=== PATIENT | female | born 1960 | race Caucasian/White ===

== ENCOUNTER → 2019-09-21 | Outpatient (REF) | LOC: M LAB LCGH 11:02 | PROVIDERS: ATTEND Surgery | DX: K80.18 Calculus of gallbladder with other cholecystitis without obstruction (principal) ==

== ENCOUNTER → 2019-11-04 | Outpatient (REF) | payer OTHER ==
[2019-11-04 17:38] LABS: APPEARANCE, URINE CLOUDY (CLEAR); BACTERIA, URINE AUTO 2+ (NEGATIVE); BILIRUBIN, URINE AUTO NEGATIVE (NEGATIVE); BLOOD, URINE BLOOD 2+ (NEGATIVE); COLOR, URINE AMBER (YELLOW); GLUCOSE, URINE (UA) AUTO NEGATIVE (NEGATIVE); KETONE, URINE AUTO NEGATIVE (NEGATIVE); LEUKOCYTE ESTERASE, URINE AUTO 3+ (NEGATIVE); MUCUS, URINE SMALL (NEGATIVE); NITRITE, URINE AUTO POSITIVE (NEGATIVE); PROTEIN, URINE AUTO NEGATIVE (NEGATIVE); RBC, URINE AUTO 16 /HPF (0-3); SPECIFIC GRAVITY URINE AUTO 1.018 (1.002-1.035); SQUAMOUS EPITHELIAL CELL UR AU 1 /HPF (0-6); WBC, URINE AUTO TNTC /HPF (0-3)
== END ==
LOC: M LAB REF 10:56
PROVIDERS: ATTEND Physician Assistant
DX: N39.0 Urinary tract infection, site not specified (principal)

== ENCOUNTER 2021-06-28 02:36 | Emergency (ER) | payer OTHER ==
[~2021-06-28] VITALS: Ht 157.5 cm; Wt 64.1 kg
[2021-06-28 02:37] VITALS: BP 174/78
--- OUTSIDE RECORDS SUMMARY | 2021-06-28 02:45 | CCD ---
Author Author [facility] Organization [facility] Address Unknown Phone Unavailable Care Team Providers Care Critical Care Nurse Practitioner Name Role Phone Mary Humphreys MD Unavailable Unavailable Mary Humphreys MD Unavailable Unavailable Mary Humphreys MD Unavailable Unavailable Mary Humphreys MD Unavailable Unavailable Mary Humphreys MD Unavailable Unavailable Mary Humphreys MD Unavailable Unavailable Mary Humphreys MD Unavailable Unavailable Mary Humphreys MD Unavailable Unavailable Mary Humphreys MD Unavailable Unavailable Mary Humphreys MD Unavailable Unavailable Mary Humphreys MD Unavailable Unavailable Mary Humphreys MD Unavailable Unavailable Mary Humphreys MD Unavailable Unavailable Mary Humphreys MD Unavailable Unavailable Mary Humphreys MD Unavailable Unavailable Mary Humphreys MD Unavailable Unavailable Mary Humphreys MD Unavailable Unavailable Mary Humphreys MD Unavailable Unavailable Mary Humphreys MD Unavailable Unavailable Mary Humphreys MD Unavailable Unavailable Mary Humphreys MD Unavailable Unavailable Mary Humphreys MD Unavailable Unavailable Mary Humphreys MD Unavailable Unavailable Mary Humphreys MD Unavailable Unavailable Mary Humphreys MD Unavailable Unavailable Mary Humphreys MD Unavailable Unavailable Mary Humphreys MD Unavailable Unavailable Mary Humphreys MD Unavailable Unavailable Mary Humphreys MD Unavailable Unavailable Mary Humphreys MD Unavailable Unavailable Mary Humphreys MD Unavailable Unavailable Mary Humphreys MD Unavailable Unavailable Mary Humphreys MD Unavailable Unavailable aMry Humphreys MD Unavailable Unavailable Mary Humphreys MD Unavailable Unavailable Mary Humphreys MD Unavailable Unavailable Mary Humphreys MD Unavailable Unavailable Mary Humphreys MD Unavailable Unavailable Mary Humphreys MD Unavailable Unavailable Mary Humphreys MD Unavailable Unavailable Mary Humphreys MD Unavailable Unavailable Mary Humphreys MD Unavailable Unavailable Mary Humphreys MD Unavailable Unavailable Mary Humphreys MD Unavailable Unavailable Mary Humphreys MD Unavailable Unavailable Mary Humphreys MD Unavailable Unavailable Mary Humphreys MD Unavailable Unavailable Mary Humphreys MD Unavailable Unavailable Mary Humphreys MD Unavailable Unavailable Mary Humphreys MD Unavailable Unavailable Mary Humphreys MD Unavailable Unavailable Mary Humphreys MD Unavailable Unavailable Mary Humphreys MD Unavailable Unavailable Mary Humphreys MD Unavailable Unavailable Mary Humphreys MD Unavailable Unavailable Mary Humphreys MD Unavailable Unavailable Mary Humphreys MD Unavailable Unavailable Mary Humphreys MD Unavailable Unavailable Mary Humphreys MD Unavailable Unavailable Mary Humphreys MD Unavailable Unavailable Mary Humphreys MD Unavailable Unavailable Mary Humphreys MD Unavailable Unavailable Mary Humphreys MD Unavailable Unavailable Mary Humphreys MD Unavailable Unavailable Mary Humphreys MD Unavailable Unavailable Mary Humphreys MD Unavailable Unavailable Mary Humphreys MD Unavailable Unavailable Mary Humphreys MD Unavailable Unavailable Mary Humphreys MD Unavailable Unavailable Mary Humphreys MD Unavailable Unavailable Mary Humphreys MD Unavailable Unavailable Mary Humphreys MD Unavailable Unavailable Mary Humphreys MD Unavailable Unavailable Mary Humprheys MD Unavailable Unavailable Mary Humphreys MD Unavailable Unavailable Mary Humphreys MD Unavailable Unavailable Mary Humphreys MD Unavailable Unavailable Mary Humphreys MD Unavailable Unavailable Mary Humphreys MD Unavailable Unavailable Mary Humphreys MD Unavailable Unavailable Mary Humphreys MD Unavailable Unavailable Mary Humphreys MD Unavailable Unavailable Mary Humphreys MD Unavailable Unavailable Mary Humphreys MD Unavailable Unavailable Mary Humphreys MD Unavailable Unavailable Mary Humphreys MD Unavailable Unavailable Mary Humphreys MD Unavailable Unavailable Mary Humphreys MD Unavailable Unavailable Mary Humphreys MD Unavailable Unavailable Mary Humphreys MD Unavailable Unavailable Mary Humphreys MD Unavailable Unavailable Mary Humphreys MD Unavailable Unavailable Mary Humphreys MD Unavailable Unavailable KRISTA, L MALLORY PA Unavailable Unavailable KRISTA, L MALLORY PA Unavailable Unavailable KRISTA, L MALLORY PA Unavailable Unavailable KRISTA, L MALLORY PA Unavailable Unavailable KRISTA, L MALLORY PA Unavailable Unavailable KRISTA, L MALLORY PA Unavailable Unavailable KRISTA, L MALLORY PA Unavailable Unavailable KRISTA, L MALLORY PA Unavailable Unavailable KRISTA, L MALLORY PA Unavailable Unavailable KRISTA, L MALLORY PA Unavailable Unavailable KRISTA, L MALLROY PA Unavailable Unavailable KRISTA, L MALLORY PA Unavailable Unavailable KRISTA, L MALLORY PA Unavailable Unavailable KRISTA, L MALLORY PA Unavailable Unavailable KRISTA, Raffy TEJADA PA Unavailable Unavailable KRISTA, L MALLORY PA Unavailable Unavailable KRISTA, L MALLORY PA Unavailable Unavailable KRISTA, Raffy TEJADA PA Unavailable Unavailable KRISTA, L MALLORY PA Unavailable Unavailable KRISTA, L MALLORY PA Unavailable Unavailable KRISTA, Raffy TEJADA PA Unavailable Unavailable KRISTA, L MALLORY PA Unavailable Unavailable Miky, R Aleisha VOICE INTERCEPT TECHNICIAN Unavailable Unavailable Miky, R Aleisha VOICE INTERCEPT TECHNICIAN Unavailable Unavailable Miky, R Aleisha VOICE INTERCEPT TECHNICIAN Unavailable Unavailable Miky, R Aleisha VOICE INTERCEPT TECHNICIAN Unavailable Unavailable Miky, R Aleisha VOICE INTERCEPT TECHNICIAN Unavailable Unavailable Miky, R Aleisha VOICE INTERCEPT TECHNICIAN Unavailable Unavailable Miky, R Aleisha VOICE INTERCEPT TECHNICIAN Unavailable Unavailable Miky, R Aleisha VOICE INTERCEPT TECHNICIAN Unavailable Unavailable Miky, R Aleisha VOICE INTERCEPT TECHNICIAN Unavailable Unavailable Miky, R Aleisha VOICE INTERCEPT TECHNICIAN Unavailable Unavailable Miky, R Aleisha VOICE INTERCEPT TECHNICIAN Unavailable Unavailable Miky, R Aleisha VOICE INTERCEPT TECHNICIAN Unavailable Unavailable Miky, R Aleisha VOICE INTERCEPT TECHNICIAN Unavailable Unavailable Miky, R Aleisha VOICE INTERCEPT TECHNICIAN Unavailable Unavailable Miky, R Aleisha VOICE INTERCEPT TECHNICIAN Unavailable Unavailable Miky, R Aleisha VOICE INTERCEPT TECHNICIAN Unavailable Unavailable Miky, R Aleisha VOICE INTERCEPT TECHNICIAN Unavailable Unavailable Miky, R Aleisha VOICE INTERCEPT TECHNICIAN Unavailable Unavailable Miky, R Aleisha VOICE INTERCEPT TECHNICIAN Unavailable Unavailable Miky, R Aleisha VOICE INTERCEPT TECHNICIAN Unavailable Unavailable Miky, R Aleisha VOICE INTERCEPT TECHNICIAN Unavailable Unavailable Miky, R Aleisha VOICE INTERCEPT TECHNICIAN Unavailable Unavailable Miky, R Aleisha VOICE INTERCEPT TECHNICIAN Unavailable Unavailable Miky, R Aleisha VOICE INTERCEPT TECHNICIAN Unavailable Unavailable Miky, R Aleisha VOICE INTERCEPT TECHNICIAN Unavailable Unavailable Miky, R Aleisha VOICE INTERCEPT TECHNICIAN Unavailable Unavailable Miky, R Aleisha VOICE INTERCEPT TECHNICIAN Unavailable Unavailable Miky, R Aleisha VOICE INTERCEPT TECHNICIAN Unavailable Unavailable Miky, R Aleisha VOICE INTERCEPT TECHNICIAN Unavailable Unavailable Miky, R Aleisha VOICE INTERCEPT TECHNICIAN Unavailable Unavailable Miky, R Aleisha VOICE INTERCEPT TECHNICIAN Unavailable Unavailable Miky, R Aleisha VOICE INTERCEPT TECHNICIAN Unavailable Unavailable Miky, R Aleisha VOICE INTERCEPT TECHNICIAN Unavailable Unavailable Miky, R Aleisha VOICE INTERCEPT TECHNICIAN Unavailable Unavailable Miky, R Aleisha VOICE INTERCEPT TECHNICIAN Unavailable Unavailable Miky, R Aleisha VOICE INTERCEPT TECHNICIAN Unavailable Unavailable Miky, R Aleisha VOICE INTERCEPT TECHNICIAN Unavailable Unavailable Miky, R Aleisha VOICE INTERCEPT TECHNICIAN Unavailable Unavailable Miky, R Aleisha VOICE INTERCEPT TECHNICIAN Unavailable Unavailable Miky, R Aleisha VOICE INTERCEPT TECHNICIAN Unavailable Unavailable Re-disclosure Warning The records that you are about to access may contain information from federally-assisted alcohol or drug abuse programs. If such information is present, then the following federally mandated warning applies: This information has been disclosed to you from records protected by federal confidentiality rules (42 CFR part 2). The federal rules prohibit you from making any further disclosure of this information unless further disclosure is expressly permitted by the written consent of the person to whom it pertains or as otherwise permitted by 42 CFR part 2. A general authorization for the release of medical or other information is NOT sufficient for this purpose. The Federal rules restrict any use of the information to criminally investigate or prosecute any alcohol or drug abuse patient.The records that you are about to access may contain highly sensitive health information, the redisclosure of which is protected by Article 27-F of the [facility] Public Health law. If you continue you may have access to information: Regarding HIV / AIDS; Provided by facilities licensed or operated by the [facility] Office of Mental Health; or Provided by the [facility] Office for People With Developmental Disabilities. If such information is present, then the following [facility] mandated warning applies: This information has been disclosed to you from confidential records which are protected by state law. State law prohibits you from making any further disclosure of this information without the specific written consent of the person to whom it pertains, or as otherwise permitted by law. Any unauthorized further disclosure in violation of state law may result in a fine or mcfp sentence or both. A general authorization for the release of medical or other information is NOT sufficient authorization for further disc losure. Allergies and Adverse Reactions Type Description Substance Reaction Status Data Source(s ) Allergy to substance Allergy to substance Allergy to substance DAVIDSON ([facility]) Encounters Encounter Providers Location Date Indications Data Source(s ) Vincent Humphreys MD: [address] [place] [address] [phone], Ph. Attender: Vincent Humphreys MD [facility] Medical 01/20/2021 12:00:00 AM EDT ISAEL ([facility]) Outpatient Attender: MALLORY VELASCO PAConsultant: Aleisha Bolaños VOICE INTERCEPT TECHNICIAN 07/24/2020 10:18:00 AM EST - 07/24/2020 10:18:00 AM EST Medications Medication Brand Name Start Date Product Form Dose Route Admi nistrative Instructions Pharmacy Instructions Status Indications Reaction Description Data Source(s) 90 mcg/actuation 02/12/2021 12:00:00 AM EDT HFA aerosol inha ler 8 INHALE TWO PUFFS BY MOUTH FOUR TIMES A DAY NEEDED INHALE TWO PUFFS BY MOUTH FOUR TIMES A DAY NEEDED SOLD: 02/14/2021 [facility] 2.5 mg /3 mL (0.083 %) 02/12/2021 12:00:00 AM EDT solu tion for nebulization 75 INHALE THE CONTENTS OF ONE VIAL VIA NEBU LIZER FOUR TIMES A DAY NEEDED INHALE THE CONTENTS OF ONE VIAL VIA NEBULIZER FOUR TIMES A DAY NEEDED SOLD: 02/14/2021 [facility] 10 mg 02/12/2021 12:00:00 AM EDT tablet 30 TAKE ONE TABLET BY MOUTH EVERY DAY TAKE ONE TABLET BY MOUTH EVERY DAY SOLD: 02/14/2021 [facility] 500 mg 02/11/2021 12:00:00 AM EDT tablet 20 TAKE ONE TABLET BY MOUTH EVERY 12 HOURS FOR 10 DAYS TAKE ONE TABLET BY MOUTH EVERY 12 HOURS FOR 10 DAYS SO LD: 02/11/2021 [facility] Cephalexin 500 MG Oral Capsule CEPHALEXIN 07/24/2020 12:00:00 AM EST capsule 28 TAKE 2 CAPSULES BY MOUTH EVERY 12 HOURS FOR 7 DAYS TONIA E 2 CAPSULES BY MOUTH EVERY 12 HOURS FOR 7 DAYS SOLD: 07/24/2020 [facility] Insurance Providers Payer name Policy type / Coverage type Policy ID Covered democrat ID Covered democrat's relationship to ren Policy Ren Plan Information [facility] COMMUNITY PLAN [facility] [id number] [facility] COMMUNTY PLAN [id number] 18 [id number] [facility] AMERICHOICE XIX -HMO [id number] 18 [id number] ANSI-Medicaid [id number] [facility]-Medicaid [id number] [facility]-Medicaid [id number] ANS-Medicaid [id number] [facility]-Medicaid [id number] ANS-Medicaid [id number] [facility] O [id number] S [id number] MEDICAID -O/P EMERGENCY ROOM [id number] [facility] [id number] SP [id number] Problems, Conditions, and Diagnoses Code Display Name Description Problem Type Effective Dates Data Source(s) R99 Ill-defined and unknown cause of mortali ty Ill-defined and unknown cause of mortality Diagnosis 07/24/2020 10:18:00 AM [facility] Surgeries/Procedures No Information Results ID Date Data Source [id number] 01/20/2021 01:37:00 PM EDT ISAEL ([facility]) Name Value Range Interpretation Code Description Data Lurdes rce(s) Supporting Document(s) sars-cov-2 positive negative Abnormal (applies to non-num sonia results) Sars-cov-2 [facility]) ID Date Data Source [id number] 01/20/2021 01:30:00 PM EDT [facility] Name Value Range Interpretation Code Description Data Lurdes rce(s) Supporting Document(s) SARS coronavirus 2 RdRp gene [Presence] in Respiratory specimen by KORTNEY with probe detection Detected [facility] This lab was ordered by [facility] and reported by [facility]. ID Date Data Source [id number] 11/11/2020 12:00:00 AM EST [facility] Name Value Range Interpretation Code Description Data Lurdes rce(s) Supporting Document(s) SARS-CoV2 Rapid Antigen Not Detected [facility] This lab was ordered by [facility] and reported by [facility]. Procedure Social History No Information
[2021-06-28] MEDS ORDERED: ALIVTAB PO (02:58)
[2021-06-28] MEDS ORDERED: ECOT81TA5 PO (02:58)
--- OUTSIDE RECORDS SUMMARY | 2021-06-28 03:34 | CCD ---
Author Author [facility] Organization [facility] Address Unknown Phone Unavailable Care Team Providers Care Pre Fabricator Name Role Phone Mary Humphreys MD Unavailable [...] MALLORY PA Unavailable Unavailable Miky, R Aleisha FISHING HAND Unavailable Unavailable Miky, R Aleisha FISHING HAND Unavailable Unavailable Miky, R Aleisha FISHING HAND Unavailable Unavailable Miky, R Aleisha FISHING HAND Unavailable Unavailable Miky, R Aleisha FISHING HAND Unavailable Unavailable Miky, R Aleisha FISHING HAND Unavailable Unavailable Miky, R Aleisha FISHING HAND Unavailable Unavailable Miky, R Aleisha FISHING HAND Unavailable Unavailable Miky, R Aleisha FISHING HAND Unavailable Unavailable Miky, R Aleisha FISHING HAND Unavailable Unavailable Miky, R Aleisha FISHING HAND Unavailable Unavailable Miky, R Aleisha FISHING HAND Unavailable Unavailable Miky, R Aleisha FISHING HAND Unavailable Unavailable Miky, R Aleisha FISHING HAND Unavailable Unavailable Miky, R Aleisha FISHING HAND Unavailable Unavailable Miky, R Aleisha FISHING HAND Unavailable Unavailable Miky, R Aleisha FISHING HAND Unavailable Unavailable Miky, R Aleisha FISHING HAND Unavailable Unavailable Miky, R Aleisha FISHING HAND Unavailable Unavailable Miky, R Aleisha FISHING HAND Unavailable Unavailable Miky, R Aleisha FISHING HAND Unavailable Unavailable Miky, R Aleisha FISHING HAND Unavailable Unavailable Miky, R Aleisha FISHING HAND Unavailable Unavailable Miky, R Aleisha FISHING HAND Unavailable Unavailable Miky, R Aleisha FISHING HAND Unavailable Unavailable Miky, R Aleisha FISHING HAND Unavailable Unavailable Miky, R Aleisha FISHING HAND Unavailable Unavailable Miky, R Aleisha FISHING HAND Unavailable Unavailable Miky, R Aleisha FISHING HAND Unavailable Unavailable Miky, R Aleisha FISHING HAND Unavailable Unavailable Miky, R Aleisha FISHING HAND Unavailable Unavailable Miky, R Aleisha FISHING HAND Unavailable Unavailable Miky, R Aleisha FISHING HAND Unavailable Unavailable Miky, R Aleisha FISHING HAND Unavailable Unavailable Miky, R Aleisha FISHING HAND Unavailable Unavailable Miky, R Aleisha FISHING HAND Unavailable Unavailable Miky, R Aleisha FISHING HAND Unavailable Unavailable Miky, R Aleisha FISHING HAND Unavailable Unavailable Miky, R Aleisha FISHING HAND Unavailable Unavailable Miky, R Aleisha FISHING HAND Unavailable Unavailable Re-disclosure Warning The records that [...] is protected by Article 27-F of the [facility] Public Health law. If you continue you may have access to information: Regarding HIV / AIDS; Provided by facilities licensed or operated by the [facility] Office of Mental Health; or Provided by the [facility] Office for People With Developmental Disabilities. If such information is present, then the following [facility] mandated warning applies: This information has been [...] law may result in a fine or half-way sentence or both. A general authorization for the release of medical or other information is NOT sufficient authorization for further disc losure. Allergies and Adverse Reactions Type Description Substance Reaction Status Data Source(s ) Allergy to substance Allergy to substance Allergy to substance [place]ALLACE ([facility]) Encounters Encounter Providers Location Date Indications Data Source(s ) Vincent Humphreys MD: [address] [place] [address] [phone], Ph. Attender: Vincent Humphreys MD [facility] Medical 01/20/2021 12:00:00 AM EDT ISAEL ([facility]) Outpatient Attender: MALLORY VELASCO PAConsultant: Aleisha Bolaños FISHING HAND 07/24/2020 10:18:00 AM EST - 07/24/2020 10:18:00 AM EST [facility] Medications Medication Brand Name Start Date Product [...] ren Policy Ren Plan Information [facility] COMMUNITY PLAN [facility] [id number] [facility] COMMUNTY PLAN [id number] 18 [id number] [facility] AMERICHOICE XIX -HMO [id number] 18 [id number] ANSI-Medicaid [id number] [facility]-Medicaid [id number] [facility]-Medicaid [id number] ANS-Medicaid [id number] [facility]-Medicaid [id number] ANS-Medicaid [id number] [facility] O [id number] S [id number] MEDICAID -O/P EMERGENCY ROOM [id number] [facility] [id number] SP [id number] Problems, Conditions, and Diagnoses Code Display Name Description Problem Type Effective Dates Data Source(s) R99 Ill-defined and unknown cause of mortali ty Ill-defined and unknown cause of mortality Diagnosis 07/24/2020 10:18:00 AM [facility] Surgeries/Procedures No Information Results ID Date Data Source [id number] 01/20/2021 01:37:00 PM EDT ISAEL ([facility]) Name Value Range Interpretation Code Description Data Lurdes rce(s) Supporting Document(s) sars-cov-2 positive negative Abnormal (applies to non-num sonia results) Sars-cov-2 [facility]) ID Date Data Source [id number] 01/20/2021 01:30:00 PM EDT [facility] Name Value Range Interpretation Code Description Data Lurdes rce(s) Supporting Document(s) SARS coronavirus 2 RdRp gene [Presence] in Respiratory specimen by KORTNEY with probe detection Detected [facility] This lab was ordered by [facility] and reported by [facility]. ID Date Data Source [id number] 11/11/2020 12:00:00 AM EST [facility] Name Value Range Interpretation Code Description Data Lurdes rce(s) Supporting Document(s) SARS-CoV2 Rapid Antigen Not Detected [facility] This lab was ordered by [facility] and reported by [facility]. Procedure Social History No Information
== END 2021-06-28 03:14 | disposition left against medical advice (07) ==
LOC: M ED 02:36
DX: Z53.29 Procedure and treatment not carried out because of patient's decision for other reasons (principal)

== ENCOUNTER → 2022-01-07 | Outpatient (REF) | payer OTHER ==
[~2022-01-07] MED LIST: ALIVTAB PO; ECOT81TA5 PO
== END ==
LOC: M LAB REF 16:28
PROVIDERS: ATTEND Physician Assistant
DX: J06.9 Acute upper respiratory infection, unspecified (principal)